=== PATIENT | female | born 1940 | race Caucasian/White ===

== ENCOUNTER → 2016-04-03 | Day surgery (SDC) | payer MEDICARE ==
[~2016-04-03] VITALS: Ht 167.6 cm; Wt 90.9 kg
[~2016-04-03] MED LIST: AMLO10TA2 PO; ASPI1TAB69 PO; CYCLOPENTOLATE HCL 1% OPHT SOLN 2 ML BTL ONE; ETOD400T PO; FLURBIPROFEN 0.03% OPHT SOLN 2.5 ML BTL ONE; FLUT1SPR5 EACH NARE; HYDR25TA5 PO; KRIL300C3 PO; LEVO100T5 PO; LIDOCAINE HCL 1% 30 ML VIAL ONE; LIDOCAINE HCL 2% JELLY 5 ML SYRINGE ONE; LISI-515 PO; METO50TA PO; MIDAZOLAM HCL 2 MG/2 ML VIAL ONE; PHENYLEPHRINE HCL 10% OPTH SOLN 5 ML BTL ONE; POTA550T2 PO; PROPARACAINE HCL 0.5% OPHT SOLN 15 ML BTL ONE; SODIUM CHLORID 0.9% 500 ML INJ 500 ML ONE; TOBRAMYCIN/DEXAMETHASONE OPTH OINT 3.5 GM TUBE ONE; TROPICAMIDE 1% OPHT SOLN 15 ML BTL ONE; VITA400T2 PO
[2016-04-03 06:38] VITALS: BP 145/79; PULSE 60; TEMP 98.8; O2SAT 95
[2016-04-03 08:50] VITALS: BP 157/83; PULSE 66; RESP 16; TEMP 98; O2SAT 97
--- NOTE | 2016-04-04 15:31 | MP ---
cc: WILLY MOISE M.D. Corrected Copy: 04/15/16 [facility] NUMBER: [id number] DATE OF SURGERY: 04/03/2016 PREOPERATIVE DIAGNOSIS: Visually significant cataract left eye. POSTOPERATIVE DIAGNOSIS: Visually significant cataract left eye. OPERATION: Phacoemulsification with posterior chamber lens implantation, left eye. SURGEON: Willy Moise MD ANESTHESIA: Topical with MAC. COMPLICATIONS: None. PROCEDURE: After informed consent was obtained, the patient was brought into the operative suite and placed on appropriate monitors by the Anesthesia Service. The patient had been given dilating drops and topical lidocaine gel in the holding area. The patient's operative eye was then prepped and draped in the usual sterile fashion. A wire lid speculum was placed. Further 2% lidocaine was then dropped on the cornea prior to beginning the procedure. A paracentesis incision was made in the peripheral cornea with a 1 mm christos keratome. The anterior chamber was filled with viscoelastic. The anterior chamber was then entered through a stepped, clear corneal incision using a sharp 3 mm christos keratome. A circular tear capsulorrhexis was then made with a bent needle cystitome. Following hydrodissection of the lens nucleus with balance saline, phaco-emulsification of the nucleus was performed using a modified chopping technique. The remaining cortex was removed with irrigation/aspiration. The prior two procedures were both performed using the handpieces of the [employer] phaco unit. The capsular bag was then filled with viscoelastic. The intraocular lens was then injected into the capsular bag and positioned. The type of intraocular lens and its power can be found elsewhere in this chart. The remaining viscoelastic was then removed from the anterior chamber with the IA handpiece. The anterior chamber was reformed with balanced saline. The wound was then closed securely with stromal hydration. It was found to be watertight to an intraocular pressure of at least 30 mmHg by palpation. A small amount of balanced salt solution was then removed through the paracentesis site and the intraocular pressure at the end of the case was approximately 20 by palpation. All drapes were then removed. TobraDex ointment was then placed in the eye, which was closed beneath a semi-pressure patch dressing. The patient tolerated this procedure well and left the operating room awake and alert. The patient is to follow-up in my office in the morning. MD Dillan Murry /9:44 AM /9:58 AM
== END | disposition home or self-care (01) ==
LOC: CSDC 05:56
PROVIDERS: ATTEND Optometrist Occupational Vision
DX: H25.812 Combined forms of age-related cataract, left eye (principal)
CPT/HCPCS: 00142; 66984; J2250; J7040; V2632